=== PATIENT | female | born 2000 | race Caucasian/White ===

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

== ENCOUNTER 2020-11-09 18:05 | Outpatient (CLI) | payer OTHER ==
[~2020-11-09 18:05] MED LIST: COLACE 100MG C100 MG PO; ECOTRIN81 MG PO; IBUPROFEN600 MG PO; LABETALOL HCL200 MG PO; LORTAB 5-325 M1 EACH PO; NORCO 10-325 T1 EACH PO; PRENATAL VITAM1 EAC8 PO; TRANDATE 100 M100 MG PO
== END 2020-11-09 19:34 | disposition home or self-care (01) ==
LOC: GENOP 18:05
DX: O42.913 Preterm premature rupture of membranes, unspecified as to length of time between rupture and onset of labor, third trimester (principal); Z3A.33 33 weeks gestation of pregnancy
CPT/HCPCS: 81001; 83518; G0463

== ENCOUNTER 2020-12-08 14:27 | Outpatient (CLI) | payer OTHER ==
[2020-12-08 15:07] LABS: HEMOGLOBIN 12.9 gm/dl (12.3-15.3); RED BLOOD COUNT 4.45 M/UL (4.00-5.10); WHITE BLOOD COUNT 12.3 K/UL (4.5-11.0)
[2020-12-09] MEDS ORDERED: DOCUSATE SODIU100 MG PO (09:46)
[2020-12-09] MEDS ORDERED: IBUPROFEN600 MG PO (09:46)
[2020-12-09] MEDS ORDERED: HYDROCODON-ACE1 EAC4 PO (09:46)
== END 2020-12-10 05:26 | disposition home or self-care (01) ==
LOC: GENOP 14:27
PROVIDERS: Obstetrics & Gynecology
DX: Z01.812 Encounter for preprocedural laboratory examination (principal)
CPT/HCPCS: 36415; 81001; 85025

== ENCOUNTER 2020-12-09 05:32 | Inpatient (IN) | payer OTHER ==
[~2020-12-09] VITALS: Ht 170.2 cm; Wt 119.3 kg
[2020-12-09] MEDS ORDERED: HYDROCODON-ACE1 EAC4 PO (09:46)
[2020-12-09] MEDS ORDERED: DOCUSATE SODIU100 MG PO (09:46)
[2020-12-09] MEDS ORDERED: IBUPROFEN600 MG PO (09:46)
[2020-12-10 06:01] LABS: HEMOGLOBIN 10.1 gm/dl (12.3-15.3)
== END 2020-12-10 14:18 | disposition home or self-care (01) | DRG 786 ==
LOC: OB 05:32
PROVIDERS: ADMIT Obstetrics & Gynecology
PROC: 4A1HX4Z Monitoring of Products of Conception, Cardiac Electrical Activity, External Approach (ICD-10-PCS; 2020-12-09)
PROC: 10D00Z1 Extraction of Products of Conception, Low, Open Approach (ICD-10-PCS; principal; 2020-12-09 07:30)
DX: O34.211 Maternal care for low transverse scar from previous cesarean delivery (principal); U07.1 COVID-19; O10.92 Unspecified pre-existing hypertension complicating childbirth; O98.52 Other viral diseases complicating childbirth; N85.8 Other specified noninflammatory disorders of uterus; Z3A.38 38 weeks gestation of pregnancy; Z37.0 Single live birth
CPT/HCPCS: 36415; 81001; 82800; 85014; 85018; 85025; 87635; 90715; C9113; J0690; J1170; J1885; J2274; J2300; J2405; J2590; J3010; J7120

== ENCOUNTER → 2021-07-21 | Outpatient (CLI) | payer OTHER ==
[~2021-07-21] MED LIST changes: +DOCUSATE SODIU100 MG PO; +HYDROCODON-ACE1 EAC4 PO
== END ==
LOC: KOH-I 15:19
DX: J20.9 Acute bronchitis, unspecified (principal); R06.02 Shortness of breath
CPT/HCPCS: 71046

== ENCOUNTER 2022-06-22 13:16 | Outpatient (CLI) | payer OTHER ==
[~2022-06-22] VITALS: Ht 170.2 cm; Wt 111.1 kg
== END 2022-06-22 18:33 | disposition home or self-care (01) ==
LOC: GENOP 13:16
DX: O47.03 False labor before 37 completed weeks of gestation, third trimester (principal); Z3A.29 29 weeks gestation of pregnancy
CPT/HCPCS: 81001; 82731; 96372; J0702

== ENCOUNTER 2022-07-13 18:45 | Outpatient (CLI) | payer OTHER | END 2022-07-13 20:19 | disposition home or self-care (01) | LOC: GENOP 18:45 | DX: O10.913 Unspecified pre-existing hypertension complicating pregnancy, third trimester (principal); Z88.5 Allergy status to narcotic agent; Z79.899 Other long term (current) drug therapy; Z3A.32 32 weeks gestation of pregnancy | CPT/HCPCS: 59025 ==